=== PATIENT | male | born 2000 | race Caucasian/White ===

== ENCOUNTER 2020-11-23 20:21 | Emergency (ER) | payer OTHER ==
[~2020-11-23] VITALS: Ht 180.3 cm; Wt 104.5 kg
[2020-11-23 20:32] VITALS: TEMP 98.5
[2020-11-23 22:22] VITALS: BP 138/65; PULSE 87
== END 2020-11-23 22:22 | disposition home or self-care (01) ==
LOC: COL.ER 20:21 → EDBD 20:24 → COL.ER 20:24
DX: R11.2 Nausea with vomiting, unspecified (principal); I10 Essential (primary) hypertension; F17.210 Nicotine dependence, cigarettes, uncomplicated; Z20.822 Contact with and (suspected) exposure to COVID-19

== ENCOUNTER 2020-11-28 22:08 | Emergency (ER) | payer OTHER ==
[~2020-11-28] VITALS: Ht 180.3 cm; Wt 104.5 kg
[2020-11-28 23:36] LABS: BASO # 0.1 (0.0-0.2); BASO % 0.4 % (0.0-2.0); EOS # 0.2 (0.0-0.7); EOS % 1.1 % (0-4.0); GRAN # 10.4 (1.4-6.5); HEMATOCRIT 45.7 % (42.0-52.0); LYMPH # 2.1 (1.2-3.4); LYMPH % 15.4 % (20.0-51.0); MEAN CELL VOLUME 82 fl (80.0-100.0); MEAN CORPUSCULAR HEMOGLOBIN 29 pg (27.0-31.0); MEAN CORPUSCULAR HGB CONC 35 g/dl (33.0-37.0); MEAN PLATELET VOLUME 10.4 fl (7.4-10.4); MONO # 1.1 (0.1-0.6); MONO % 7.8 % (1.7-9.3); PLATELET COUNT 244 K/mm3 (130-400); RED BLOOD COUNT 5.56 M/mm3 (4.20-5.60)
[2020-11-29] LABS: ALBUMIN 4.8 gm/dL (3.5-5.0); BILIRUBIN,TOTAL 0.5 mg/dL (0.2-1.2); C-REACTIVE PROTEIN 3.7 mg/dL (0.00-0.50); CALCIUM 9.9 mg/dL (8.4-10.2); CREATININE, serum 1.02 mg/dL (0.72-1.25); POTASSIUM 3.5 mmol/L (3.5-4.5)
[2020-11-29 00:19] VITALS: BP 152/76; PULSE 93; TEMP 99
== END 2020-11-29 00:20 | disposition home or self-care (01) ==
LOC: COL.ER 22:08
PROVIDERS: Family Medicine
DX: R52 Pain, unspecified (principal); T50.B95A Adverse effect of other viral vaccines, initial encounter

== ENCOUNTER 2021-01-05 19:48 | Emergency (ER) | payer OTHER ==
[~2021-01-05] VITALS: Ht 180.3 cm; Wt 109.1 kg
[2021-01-05 20:06] VITALS: TEMP 97.2
[2021-01-05] MEDS ORDERED: FLEXERIL 1010 MG/TAB PO (20:27)
[2021-01-05] MEDS ORDERED: VOLTAREN 75 DR75 MG PO (20:27)
[2021-01-05 20:53] VITALS: BP 154/80; PULSE 88
== END 2021-01-05 20:53 | disposition home or self-care (01) ==
LOC: COL.ER 19:48
DX: M54.50 Low back pain, unspecified (principal); F17.210 Nicotine dependence, cigarettes, uncomplicated
CPT/HCPCS: J1885